=== PATIENT | male | born 1990 | race African-American/Black ===

== ENCOUNTER 2020-05-06 18:42 | Emergency (ER) | payer MEDICAID ==
[2020-05-06] MEDS ORDERED: Lidocaine 1% 10 ML MDV INJECT ONE (19:05)
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
[2020-05-06] MEDS ORDERED: Ibuprofen 800 MG Tab PO ONE (20:32)
--- NOTE | 2020-05-07 11:17 | CT ---
Head CT Technique: Multiple axial sections through the brain were obtained. Comparison: No prior intracranial imaging is available. Findings: Ventricles along with basal cisterns and sulci over the convexities are within normal limits for the patient's age. No abnormal parenchymal densities are seen. No evidence of intracranial hemorrhage. No midline shift or mass-effect is appreciated. Bone window settings were reviewed. Visualized mastoid sinuses and paranasal sinuses show nothing acute. No acute calvarial finding is appreciated. There is mild soft tissue swelling seen within the left scalp and left periorbital region. Impression: 1. Slight soft tissue swelling as noted above. 2. No acute intracranial abnormality is seen. Diagnostic code #2 I agree with preliminary report from [facility], finalized on 05/06/20, 8:52 PM ECHO TECH
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
== END 2020-05-06 21:00 | disposition home or self-care (01) ==
LOC: JD.ED 18:42
DX: S02.2XXA Fracture of nasal bones, initial encounter for closed fracture (principal); S06.0X0A Concussion without loss of consciousness, initial encounter; Z72.0 Tobacco use; Z88.0 Allergy status to penicillin; Y04.0XXA Assault by unarmed brawl or fight, initial encounter
CPT/HCPCS: 12011; 70450; 70450-26; 70486; 70486-26; 99284; 99284-25

== ENCOUNTER 2020-05-10 17:39 | Emergency (ER) | payer MEDICAID ==
[2020-05-10] MEDS ORDERED: Sodium Chloride 0.9% 1,000 ML IV STA ×2 (18:08→19:01)
[2020-05-10] MEDS ORDERED: HYDROmorphone 0.5 MG/0.5 ML Syringe IVPUSH ONE (18:08)
[2020-05-10] MEDS ORDERED: Ondansetron 4 MG/2 ML SDV IVPUSH ONE (18:08)
[2020-05-10] MEDS ORDERED: Sodium Chloride 0.9% 10 ML Syringe FLUSH PRN (18:08)
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
--- NOTE | 2020-05-10 19:13 | US ---
Limited abdominal ultrasound: Multiple real-time images of the upper right abdomen were obtained. Comparison: No prior abdominal imaging is available. Findings: Hyperechoic finding is seen within the right lobe of liver with maximum measurements of 2.9 cm. No additional abnormality is seen within the liver. Gallbladder contains no shadowing gallstones. No gallbladder wall thickening or biliary duct dilatation is seen. Right kidney shows no hydronephrosis or mass. Right kidney has a length of 10.6 cm. Main portal vein shows normal hepatopedal flow. Pancreas is not well seen. Visualized portions of the pancreas appear within normal limits. Impression: 1. Hyperechoic nodule within the liver most likely representing a hemangioma. 2. No additional abnormality is appreciated on right upper quadrant abdominal ultrasound. Diagnostic code #2
[2020-05-10] MEDS ORDERED: Dicyclomine 10 MG Cap PO ONE (19:31)
== END 2020-05-10 19:45 ==
LOC: JD.ED 17:39
DX: K52.9 Noninfective gastroenteritis and colitis, unspecified (principal); I10 Essential (primary) hypertension; D72.829 Elevated white blood cell count, unspecified; Z72.0 Tobacco use; Z88.0 Allergy status to penicillin
CPT/HCPCS: 36415; 76705; 80053; 83690; 85025; 86140; 96374; 96375; 99284; A9270; J1170; J2405; J7030; 99283